=== PATIENT | female | born 1970 | race Caucasian/White ===

== ENCOUNTER 2016-03-26 11:04 | Emergency (ER) | payer OTHER ==
[2016-03-26 11:10] VITALS: TEMP 97.9; BMI 36.8
--- NOTE | 2016-03-26 11:22 | PDOC ---
History of Present Illness - General History Source: Patient Exam Limitations: No Limitations - History of Present Illness Initial Comments: 03/26/16 12:00 Patient is a 45 year old female with no past medical history who presents to the ED with nasal congestion, headache, and mild cough for 4 days. Patient reports difficulty breathing secondary to nasal congestion. Patient states that she started not to feel well on Saturday and it progressively worsened, which made her present to the ED today. She denies any fever, chills, nausea, vomiting, diarrhea, constipation, chest pain or chest pressure. She denies any hx of asthma. Allergies: none. <Hilaria Seymour - Last Filed: 03/26/16 12:20> <Sourav Benitez - Last Filed: 03/26/16 13:38> - General Chief Complaint: Shortness of Breath Stated Complaint: SOB (ASTHMA) Time Seen by Provider: 03/26/16 11:22 Past History <Hilaria Seymour - Last Filed: 03/26/16 12:20> - Past Medical History Asthma: Yes Hypercholesterolemia: Yes - Surgical History Cholecystectomy: Yes - Psycho/Social/Smoking Cessation Hx Anxiety: No Suicidal Ideation: No Smoking History: Never smoked Have you smoked in the past 12 months: No Information on smoking cessation initiated: No Hx Alcohol Use: No Drug/Substance Use Hx: No Substance Use Type: None <Sourav Benitez - Last Filed: 03/26/16 13:38> - Past Medical History Allergies/Adverse Reactions: Allergies Allergy/AdvReac Type Severity Reaction Status Date / Time No Known Allergies Allergy Verified 03/26/16 11:06 Home Medications: Ambulatory Orders Albuterol Sulfate Inhaler - [Ventolin Hfa Inhaler -] 1 - 2 inh PO QID 03/26/16 Ibuprofen 600 mg PO TID #30 tablet 03/26/16 Pseudoephedrine HCl [Sudafed 12 Hour] 120 mg PO BID #20 tablet.er 03/26/16 Review of Systems - Review of Systems Able to Perform ROS?: Yes Comments:: 03/26/16 12:04 GENERAL/CONSTITUTIONAL: No fever or chills. No weakness. HEAD, EYES, EARS, NOSE AND THROAT: +nasal congestion, +nasal pressure, + headache pressure. No change in vision. No ear pain or discharge. No sore throat. CARDIOVASCULAR: No chest pain or shortness of breath. RESPIRATORY: +cough. No wheezing, or hemoptysis. GASTROINTESTINAL: No nausea, vomiting, diarrhea or constipation. GENITOURINARY: No dysuria, frequency, or change in urination. MUSCULOSKELETAL: No joint or muscle swelling or pain. No neck or back pain. SKIN: No rash NEUROLOGIC: No headache, vertigo, loss of consciousness, or change in strength/ sensation. ENDOCRINE: No increased thirst. No abnormal weight change. HEMATOLOGIC/LYMPHATIC: No anemia, easy bleeding, or history of blood clots. ALLERGIC/IMMUNOLOGIC: No hives or skin allergy. <Hilaria Seymour - Last Filed: 03/26/16 12:20> *Physical Exam - Vital Signs Last Vital Signs Temp Pulse Resp BP Pulse Ox 97.9 F 113 H 20 152/82 96 03/26/16 11:06 03/26/16 11:06 03/26/16 11:06 03/26/16 11:06 03/26/16 11:06 - Physical Exam Comments: 03/26/16 12:05 GENERAL: Awake, alert, and fully oriented, in no acute distress HEAD: No signs of trauma EYES: PERRLA, EOMI, sclera anicteric, conjunctiva clear ENT: Auricles normal inspection, hearing grossly normal, nares patent, oropharynx clear without exudates. Moist mucosa NECK: Normal ROM, supple, no lymphadenopathy, JVD, or masses LUNGS: Breath sounds equal, clear to auscultation bilaterally. No wheezes, and no crackles HEART: Regular rate and rhythm, normal S1 and S2, no murmurs, rubs or gallops ABDOMEN: Soft, nontender, normoactive bowel sounds. No guarding, no rebound. No masses EXTREMITIES: Normal range of motion, no edema. No clubbing or cyanosis. No cords, erythema, or tenderness NEUROLOGICAL: Cranial nerves II through XII grossly intact. Normal speech, normal gait SKIN: Warm, Dry, normal turgor, no rashes or lesions noted. <Hilaria Seymour - Last Filed: 03/26/16 12:20> - Vital Signs Last Vital Signs Temp Pulse Resp BP Pulse Ox 97.9 F 113 H 20 152/82 96 03/26/16 11:06 03/26/16 11:06 03/26/16 11:06 03/26/16 11:06 03/26/16 11:06 <Sourav Benitez - Last Filed: 03/26/16 13:38> ED Treatment Course - ADDITIONAL ORDERS Additional order review: Laboratory Results 03/26/16 11:32 Urine HCG, Qual Negative <Hilaria Seymour - Last Filed: 03/26/16 12:20> - LABORATORY CBC & Chemistry Diagram: 03/26/16 11:58 03/26/16 11:58 <Sourav Benitez - Last Filed: 03/26/16 13:38> Medical Decision Making - Medical Decision Making 03/26/16 12:02 45 year old female with no pmh who presents to the ED with nasal congestion, pressure headache and mild cough since Saturday. Will order blood work, UA, CXR and flu swab. Patient will receive supportive care in the meantime will reassess after the results are back. 03/26/16 12:20 CXR reviewed that shows no acute pulmonary disease. Awaiting results of the lab work. <Hilaria Seymour - Last Filed: 03/26/16 12:20> *DC/Admit/Observation/Transfer - Attestations Scribe Attestion: 03/26/16 12:02 Documentation prepared by JOB Smith, acting as medical stenographer for Sourav Benitez MD/. <Hilaria Seymour - Last Filed: 03/26/16 12:20> - Attestations Physician Attestion: 03/26/16 11:22 I, Dr. Sourav Benitez, attest that this document has been prepared under my direction and personally reviewed by me in its entirety. I further attest, that it accurately reflects all work, treatment, procedures and medical decision -making performed by me. <Sourav Benitez - Last Filed: 03/26/16 13:38> Diagnosis at time of Disposition: Upper respiratory infection, viral - Discharge Dispostion Disposition: HOME Condition at time of disposition: Good - Prescriptions Prescriptions: Ibuprofen 600 mg PO TID #30 tablet Pseudoephedrine HCl [Sudafed 12 Hour] 120 mg PO BID #20 tablet.er - Referrals Referrals: STAFF,NOT ON [Primary Care Provider] - - Patient Instructions Printed Discharge Instructions: DI for Viral Upper Respiratory Infection -- Adult
[2016-03-26] MEDS ORDERED: methylPREDNISolone NA SUCC 125 MG/2 ML VIAL IVPUSH ONE (11:56)
[2016-03-26] MEDS ORDERED: PSEUDOEPHEDRINE HCL 60 MG TABLET PO ONE (12:00)
[2016-03-26] MEDS ORDERED: PSEUDOEPHEDRINE HCL 60 MG TABLET ONE (12:18)
[2016-03-26] MEDS ORDERED: methylPREDNISolone NA SUCC 125 MG/2 ML VIAL ONE (12:18)
[2016-03-26 12:24] LABS: BASOPHIL 0.5 % (0-2.0); MCH 29.7 pg (25.7-33.7); MCHC 33.2 g/dl (32.0-36.0); MEAN CELL VOLUME 89.2 fl (80-96); MEAN PLT VOLUME 8.4 fl (7.5-11.1); NEUTROPHILS 60.5 % (42.8-82.8); PLATELET COUNT 187 K/MM3 (134-434); RDW 13.9 % (11.6-15.6); WHITE BLOOD COUNT 6.7 K/mm3 (4.0-10.0)
[2016-03-26 12:50] LABS: ALBUMIN 3.8 g/dl (3.4-5.0); ALK PHOS 74 U/L (45-117); ANION GAP 9 (8-16); BILIRUBIN,TOTAL 0.5 mg/dL (0.2-1.0); CALCIUM 8.5 mg/dL (8.5-10.1); CO2 25 mmol/L (21-32); CREATININE 0.5 mg/dL (0.55-1.02); GLUCOSE,RANDOM 136 mg/dL (74-106); SGOT/AST 31 U/L (15-37); SGPT/ALT 47 U/L (12-78); TOT PROT 7.2 g/dl (6.4-8.2)
[2016-03-26] MEDS ORDERED: ALBUTEROL SO4 2.5/IPRATROPIUM 0.5 INH SOL 3 ML VIAL.NEB. NEB ONE (13:02)
[2016-03-26 13:51] VITALS: BP 115/84; PULSE 99
== END 2016-03-26 13:51 | disposition home or self-care (01) ==
LOC: JER 11:04
PROC: 3E0333Z Introduction of Anti-inflammatory into Peripheral Vein, Percutaneous Approach (ICD-10-PCS; principal; 2016-03-26)
DX: J06.9 Acute upper respiratory infection, unspecified (principal); B97.89 Other viral agents as the cause of diseases classified elsewhere
CPT/HCPCS: 36415; 71020-TC; 80053; 84703; 85025; 87804; 96374; 99282-25

== ENCOUNTER 2019-03-11 14:54 | Emergency (ER) | payer OTHER ==
[2019-03-11] MEDS ORDERED: ACETAMINOPHEN 500 MG TABLET (FP) PO ONE (14:59)
--- NOTE | 2019-03-11 15:00 | PDOC ---
Rapid Medical Evaluation Time Seen by Provider: 03/11/19 14:57 Medical Evaluation: Allergies Allergy/AdvReac Type Severity Reaction Status Date / Time No Known Allergies Allergy Verified 03/26/16 11:06 03/11/19 14:57 CC:Flu-like symptoms x2 days. PMHx-asthma PE: VSS. No focal findings. Lungs CTAB. Orders: Tylenol Patient will proceed to the ED for further evaluation. 03/11/19 15:00 Discharge Disposition - Diagnosis Upper respiratory infection, viral - Referrals - Patient Instructions - Post Discharge Activity
[2019-03-11 15:01] VITALS: BP 131/78; PULSE 86; TEMP 98.2; BMI 37.0
[2019-03-11] MEDS ORDERED: ALBUTEROL SO4 2.5/IPRATROPIUM 0.5 INH SOL 3 ML VIAL.NEB. NEB ONE ×2 (15:18→15:38)
[2019-03-11] MEDS ORDERED: predniSONE 20 MG TABLET (UD) PO ONE (15:18)
[2019-03-11] MEDS ORDERED: predniSONE 20 MG TABLET (UD) ONE (15:37)
[2019-03-11] MEDS ORDERED: ACETAMINOPHEN 500 MG TABLET (FP) ONE (15:37)
--- NOTE | 2019-03-11 16:01 | PDOC ---
History of Present Illness - General Chief Complaint: Cold Symptoms Stated Complaint: ASTHMA Time Seen by Provider: 03/11/19 14:57 History Source: Patient Past History - Past Medical History Allergies/Adverse Reactions: Allergies Allergy/AdvReac Type Severity Reaction Status Date / Time No Known Allergies Allergy Verified 03/11/19 14:57 Home Medications: Ambulatory Orders Albuterol Sulfate Inhaler - [Ventolin Hfa Inhaler -] 1 - 2 inh PO QID 03/26/16 Ibuprofen 600 mg PO TID #30 tablet 03/26/16 Pseudoephedrine HCl [Sudafed 12 Hour] 120 mg PO BID #20 tablet.er 03/26/16 Albuterol Sulfate Inhaler - [Ventolin HFA Inhaler -] 1 - 2 inh PO QID #1 inhaler 03/11/19 predniSONE [Deltasone -] 40 mg PO DAILY #8 tablet 03/11/19 Asthma: Yes Hypercholesterolemia: Yes - Surgical History Cholecystectomy: Yes - Psycho Social/Smoking Cessation Hx Smoking History: Never smoked Have you smoked in the past 12 months: No Hx Alcohol Use: No Drug/Substance Use Hx: No Substance Use Type: None *Physical Exam - Vital Signs Last Vital Signs Temp Pulse Resp BP Pulse Ox 98.2 F 86 22 H 131/78 96 03/11/19 14:58 03/11/19 14:58 03/11/19 14:58 03/11/19 14:58 03/11/19 14:58 ED Treatment Course - Medications Given in the ED: ED Medications Discontinued Medications Generic Name Dose Route Start Last Admin Trade Name Homeq PRN Reason Stop Dose Admin Acetaminophen 1,000 mg 03/11/19 14:59 03/11/19 15:42 Tylenol - PO 03/11/19 15:00 1,000 mg ONCE ONE Administration Albuterol/Ipratropium 1 amp 03/11/19 15:18 03/11/19 15:42 Duoneb - NEB 03/11/19 15:19 1 amp ONCE ONE Administration Prednisone 60 mg 03/11/19 15:18 03/11/19 15:42 Deltasone - PO 03/11/19 15:19 60 mg ONCE ONE Administration Medical Decision Making - Medical Decision Making 03/11/19 15:53 48-year-old female, history of asthma, no exacerbation in years per patient, here with cough with sore throat, nasal congestion, body aches and subj fever x 2 days. Some point developed shortness of breath consistent with her asthma, no wheezing or chest tightness at this time see exam Mild asthma flare in setting of viral syndrome Stable w/ clear lungs -duonebs -pred -r/o flu -reassess 03/11/19 16:27 Flu negative. Patient improved with nebs. Will discharge with pred burst Discharge - Discharge Information Problems reviewed: Yes Clinical Impression/Diagnosis: Viral syndrome Asthma flare Qualifiers: Asthma severity: mild Asthma persistence: unspecified Qualified Code(s): J45.901 - Unspecified asthma with (acute) exacerbation Condition: Improved Disposition: HOME - Additional Discharge Information Prescriptions: Albuterol Sulfate Inhaler - [Ventolin HFA Inhaler -] 1 - 2 inh PO QID #1 inhaler predniSONE [Deltasone -] 40 mg PO DAILY #8 tablet - Follow up/Referral Referrals: Akhil Mckenna [Primary Care Provider] - - Patient Discharge Instructions Patient Printed Discharge Instructions: DI for Viral Upper Respiratory Infection -- Adult, Asthma -- Adult - Post Discharge Activity Work/Back to School Note: Back to Work
== END 2019-03-11 16:25 | disposition home or self-care (01) ==
LOC: JERFT 14:54
PROC: 3E0F7GC Introduction of Other Therapeutic Substance into Respiratory Tract, Via Natural or Artificial Opening (ICD-10-PCS; principal; 2019-03-11)
DX: B34.9 Viral infection, unspecified (principal); J45.901 Unspecified asthma with (acute) exacerbation
CPT/HCPCS: 87804; 99282-25